=== PATIENT | female | born 1945 | race Caucasian/White ===

== ENCOUNTER 2017-09-15 07:27 | Day surgery (SDC) | payer MEDICARE, OTHER, SELFPAY ==
[2017-08-30 13:55] VITALS: BMI 35.4
[2017-09-15] VITALS (11 sets, daily range): BP systolic 102–135; BP diastolic 53–75; PULSE 55–67; RESP 12–18; TEMP 36.1–36.6; O2SAT 92–96; BMI 36.2
--- NOTE | 2017-09-15 09:20 | PM.PREOP ---
Pre-operative Note Interval Note Pre-op Check: Yes History & Physical Reviewed by Physician Changes: No
[2017-09-15] MEDS: CEFAZOLIN 2 GM/100 ML FROZ.PIGGY IV (09:23)
[2017-09-15] MEDS: LACTATED RINGERS 1,000 ML 42 ML IV (09:25)
[2017-09-15] MEDS: BUPIVACAINE 0.5% W/ EPI (PF) VIAL 30 ML INJ (10:28)
--- NOTE | 2017-09-15 10:33 | P.OP_ITS ---
Operative Date/Time/Diagnoses Date of procedure: 09/15/17 Time of procedure: 09:05 Pre-op diagnosis: Right basal thumb arthritis, right trigger thumb Post-op diagnosis: same Procedure & Clinicians Procedure: Right trigger thumb release. Right LRTI Same procedure as scheduled: Yes Indications: . Right basal thumb arthritis as well as a right trigger thumb unresponsive to conservative treatment. Surgeon: Harrison Marquez Analyst Business Analysis: Eddie Valverde Anesthesia Type: General Operative Notes Findings: End-stage arthritic changes to the basal joint. Locking catching of the FPL tendon at the A1 chelsy. Closure Type: primary Specimen(s): none sent Implants & Drains: Tenodesis screw Estimated Blood Loss (mL): 5 Blood products transfused: none Tourniquet time (min): 46 Procedure in detail: On date of service, the patient was met in the holding area. The operative site was signed and witnessed by the OR staff. The surgery was once again discussed with patient, and any remaining questions Were answered fully. Patient was taken back to the operating theater and placed on the operating table in a supine position. Great care was taken to ensure that all bony prominences were properly padded. A well-padded tourniquet was placed up along the upper extremity. A timeout was performed verifying patient's name, procedure, and operative site. The arm was prepped and draped in the normal sterile fashion. An Esmarch was used to exsanguinate the limb and the tourniquet was turned up to 250 mm mercury. A 15 blade was used to incise the skin only. Pickups and tenotomy scissors were used to dissect down through the fascial tissue. Great care was taken to ensure that the neurovascular bundles on either side of the tendons were protected. Once we had good visualization of the A1 chelsy, it was sharply incised using a 15 blade. This allowed the FPL tendons to move freely without any locking or catching. We then turned our attention to the basal joint. A 15 blade was used to make an incision in a dorsal radial position. Pickups and tenotomy scissors were used to dissect down through the fascial tissue. Great care was taken to ensure that the branches off the superficial radial nerve root identified and protected. Next, an interval was made between EPB and APL. The recurrent branch of the radial artery was identified and protected. The capsular tissues surrounding the basal joints was opened and released around the trapezium and a 360? fashion. This gave us good visualization of the basal joint as well as the trapezial scaphoid joint. Significant arthritis at the basal joints but no sign of any arthritis at the trapezial scaphoid joint. Next the trapezium was removed as well as any potential osteophytes. The wound was then copiously irrigated to remove any remaining bony fragments. The FCR tendon was then harvested. A drill was then used to make a bony tunnel through the first metacarpal. Guidewire was placed through the bony tunnel and the FCR tendon was pulled through the bony tunnel. With the tendon under tension , a tenodesis screw was placed securing the tendon into the bony tunnel. This provided a secure suspension plasty of the thumb, as well as recreating the beak ligament. The wound was irrigated once again. A thick capsular closure was performed using 2-0 Ethibond. The rest of the wound was closed in a layered fashion. The hand was then cleaned, dried, and dressed. Patient was placed into a thumb spica splint. Patient was taken back to the PACU in stable condition. Complications: none Condition: stable Disposition: PACU Plan for aftercare: Thumb spica splint for 2 weeks. This will be followed by removable brace and at 2 weeks patient can start working on thumb and wrist range of motion.
[2017-09-15] MEDS: fentaNYL 100 MCG/2 ML INJ 50 MCG IV ×2 (10:54→11:01)
[2017-09-15] MEDS: HYDROCODONE/ACET 5/325 TABLET 1 TAB PO ×2 (11:09→11:40)
[2017-09-15] MEDS: HYDROMORPHONE 2 MG INJ 0.25 MG IV ×2 (11:14→11:25)
--- NOTE | 2017-09-15 12:09 | SUR.PHASEII ---
care assumed from [employer] completed d/c instructions, pt left when ready and left in stable condition.
== END 2017-09-15 12:12 | disposition home or self-care (01) ==
PROVIDERS: Family Provider Family Medicine; PCP Family Medicine; Visit Provider Orthopaedic Surgery
PROC: (CPT 26055; principal; 2017-09-15 09:00)
PROC: (CPT 26540; 2017-09-15 09:00)
DX: M65.311 Trigger thumb, right thumb (principal); M18.11 Unilateral primary osteoarthritis of first carpometacarpal joint, right hand; Z87.891 Personal history of nicotine dependence; G47.33 Obstructive sleep apnea (adult) (pediatric)
CPT/HCPCS: 25447; 25310; 26055; J0690; J1170; J2405; J2704; J3010